=== PATIENT | male | born 1945 | race Caucasian/White ===

== ENCOUNTER 2021-02-24 00:20 | Day surgery (SDC) | payer OTHER ==
[2021-02-24] MEDS ORDERED: [UNRECOGNIZED DRUG - OTHER] PO (15:21)
== END 2021-02-24 16:52 | disposition home or self-care (01) ==
LOC: ATC 00:20
DX: D73.1 Hypersplenism (principal); C91.10 Chronic lymphocytic leukemia of B-cell type not having achieved remission; D63.0 Anemia in neoplastic disease
CPT/HCPCS: 96365; J2916

== ENCOUNTER 2021-12-09 02:08 | Day surgery (SDC) | payer OTHER ==
[~2021-12-09 02:08] MED LIST: [UNRECOGNIZED DRUG - OTHER] PO
[2021-12-09] MEDS ORDERED: [UNRECOGNIZED DRUG - OTHER] PO (15:53)
[2021-12-09] MEDS ORDERED: C COMPLEX1000 M1 PO (15:53)
[2021-12-15] MEDS ORDERED: [UNRECOGNIZED DRUG - OTHER] IV (15:20)
== END 2021-12-09 19:00 | disposition home or self-care (01) ==
LOC: ATC 02:08
DX: D64.9 Anemia, unspecified (principal); I10 Essential (primary) hypertension
CPT/HCPCS: 36430; 86850; 86900; 86901; 86922; J7040; P9016